=== PATIENT | male | born 1965 | race Caucasian/White ===

== ENCOUNTER → 2021-12-17 | Day surgery (SDC) | payer OTHER ==
[~2021-12-17] MED LIST: DULA0.75 SQ; GLIP10TA13 PO; IPRATRPIUM/ALBUTEROL 0.5/2.5MG 3 ML NEBU. NEB PRN; LIDOCAINE 2% PF 5 ML VIAL. ONE; LISI10TA16 PO; MIDAZOLAM HCL PF 2 MG/2 ML VIAL. IV ONE; ONDANSETRON PF 4 MG/2 ML VIAL. IV PRN; PROPOFOL 10,000 MCG/ML (20ML) VIAL IV ONE; VENL75TA2 PO; [UNRECOGNIZED DRUG - CODE] PO; [UNRECOGNIZED DRUG - REMARK]
[2021-12-17] MEDS: IV RINGERS SOLUTION,LACTATED 1,000 ML IV SCH ×2 (13:44→14:39)
[2021-12-17 15:36] VITALS: BP 121/66
== END | disposition home or self-care (01) ==
LOC: SURG 13:09
PROVIDERS: ATTEND Internal Medicine Gastroenterology
DX: Z12.11 Encounter for screening for malignant neoplasm of colon (principal); K57.30 Diverticulosis of large intestine without perforation or abscess without bleeding; K64.8 Other hemorrhoids; K63.5 Polyp of colon; E11.9 Type 2 diabetes mellitus without complications; I10 Essential (primary) hypertension; E03.0 Congenital hypothyroidism with diffuse goiter; Z80.0 Family history of malignant neoplasm of digestive organs; Z86.010 Personal history of colon polyps; Z72.89 Other problems related to lifestyle; Z79.899 Other long term (current) drug therapy; Z88.8 Allergy status to other drugs, medicaments and biological substances
CPT/HCPCS: 45385; 82947; J2001; J2704; J7120